=== PATIENT | male | born 1955 | race Caucasian/White ===

== ENCOUNTER 2019-01-23 13:30 | Outpatient (RCR) | payer MEDICAID ==
[2015-05-29 19:24] VITALS: BP 145/88
[~2019-01-23 13:30] MED LIST: CLARITIN-D 10 M1 T24 PO; CLONAZEPAM0.5 MG PO; CLOPIDOGREL PO; COD LIVER OIL1 CAP PO; CURCUMIN95%; ECOTRIN325 M1 PO; LEVOTHYROXIN0.137 MG PO; MAGNESIUM400 M1 PO; MINITRAN1 EAC1 TD; NORCO 325 MG-51 TAB PO; OMEGA 3 1,0001 EACH PO; PRILOSEC 20MG20 MG PO
== END 2019-03-26 ==
LOC: PT
DX: M54.10 Radiculopathy, site unspecified (principal); M54.5 Low back pain